=== PATIENT | female | born 1975 | race Caucasian/White ===

== ENCOUNTER 2018-10-05 10:20 | Observation (INO) | payer MEDICAID, OTHER ==
[~2018-10-05 10:20] MED LIST: BUPIV. HCL 0.25% (2.5MG/ML)/EPI. (1:200,000) PF 30 ML VIAL IJ ONE; CLINDAMYCIN PHOSPHATE 900 MG/6 ML VIAL ONE; DEXAMETHASONE SODIUM PHOSPHATE 10 MG/ML VIAL ONE; ENOXAPARIN SODIUM 40 MG/0.4 ML DISP.SYRIN SQ ONE; FAMOTIDINE 20 MG/2 ML VIAL ONE; KETOROLAC TROMETHAMINE 30 MG/1ML VIAL ONE; LACTATED RINGERS 1,000 ML IV.SOLN IV ONE; LEVALBUTEROL NEB 1.25 MG/3 ML VIAL.NEB IH ONE; LIDOCAINE HCL 1% PF 300MG/30ML VIAL ONE; LIDOCAINE HCL 2% PF 100MG/5ML VIAL IJ ONE; MIDAZOLAM HCL 2 MG/2 ML VIAL ONE; NORMAL SALINE 1,000 ML IV.SOLN IV ONE; ONDANSETRON HCL/PF 4 MG/ 2ML VIAL ONE; PROPOFOL 200 MG/20 ML VIAL IV ONE; ROCURONIUM BROMIDE 10 MG/ML 5ML VIAL ONE; SEVOFLURANE 250 ML LIQUID IH ONE; SUGAMMADEX SODIUM 200 MG/2 ML VIAL IV ONE; fentaNYL CITRATE/PF 100 MCG/2 ML INJ. ONE
[2018-10-05] MEDS ORDERED: ACETAMINOPHEN 1,000 MG/100 ML INJ IV PRN (10:27)
[2018-10-05] MEDS ORDERED: ONDANSETRON HCL/PF 4 MG/ 2ML VIAL IVP PRN (10:27)
[2018-10-05] MEDS ORDERED: ACETAMINOPHEN 500 MG TABLET PO PRN (10:27)
[2018-10-05] MEDS ORDERED: 0.9 % SODIUM CHLORIDE 1,000 ML IV SCH (10:30)
[2018-10-05] MEDS ORDERED: ALBUTEROL 90MCG/PUFF INHALER IH PRN (10:43)
--- NOTE | 2018-10-05 11:03 | History and Physical Report ---
History of Present Illnes - History of Present Illness Reason for Visit: Gastric Band Removal History of Present Illness: Patient is a 43-year-old female who presents to the hospital today to have Gastric Band removed. Patient initially had the Gastric Band placed in 2013. She has a history of dealing with obesity especially after 1st . She has tried multiple diet programs, diets, medications, and exercise with little benefit. Patient and PCP believed her co-morbidities were associated with her weight and she underwent the gastric band in 2013. She states that she had lost some weight but has gained it back. Patient will be staying observation due to miscommunication and not having a guard driver. Patient drove herself. Upon arrival to room she was tearful because she would not be able to receive narcotic pain meds since she was driving herself. She is not uncomfortable at this time but she is concerned about not being able to receive "narcotic" pain medication. Education was provided to patient that we would provide appropriate pain treatment including; ambulation, incentive spirometry, anxiety medications (home med), and non-narcotic pain medication. She is on her phone vigorously trying to find someone to get her so she can take her "future scheduled narcotic pain meds". I explained that we would do our best to keep her comfortable and treat her appropriately- I explained that she does not need to panic and staying here will be ok. She is slowly starting to calm down. I will continue with her antidepressant and anxiety medications. After exam- patient was up walking in the brown with physical therapy- she was doing very well- she was socializing with PT and staff and appears to be feeling emotionally better. She is smiling, no apparent distress with ambulation. Will continue to monitor and speak with patient to calm her concerns. 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) Drugs: None Lives: With Family Domestic Violence: Negative - Health Maintenance Health Maintenance: Cholesterol, Influenza Vaccine Influenza Vaccine: Current for this Influenza Season Pneumonia Vaccine: No Resuscitation Status: Resusciation Status Resuscitation Status Full Code - Unable to Obtain History Unable to Obtain: No Review of Systems - Review of Systems Constitutional: negative: Fever, Chills, Weakness Eyes: negative: pain ENT: negative: Ear Pain, Nose Pain, Throat Pain Respiratory: negative: Cough, Shortness of Breath, SOB with Excertion, Wheezing Cardiovascular: negative: Chest Pain, Palpitations, Light Headedness Gastrointestinal: negative: Nausea, Vomiting, Abdominal Pain Genitourinary: negative: Dysuria Musculoskeletal: negative: Back Pain Skin: negative: Rash Neurological: negative: Weakness - Medications/Allergies Allergies/Adverse Reactions: Allergies Allergy/AdvReac Type Severity Reaction Status Date / Time Penicillins Allergy Verified 10/05/18 10:26 Home Medications: Home Medications Albuterol Sulfate [Proair HFA] 2 inh IH Q4-6 PRN 10/05/18 Alprazolam [Xanax] 0.5 mg PO TID 10/05/18 Gabapentin 300 mg PO BID 10/05/18 Hydrochlorothiazide 12.5 mg PO DAILY 10/05/18 Hydrocodone/Acetaminophen [Hydrocodone-Acetamin 5-325 mg] 1 each PO Q6 PRN 10/05/18 Losartan Potassium [Cozaar] 50 mg PO DAILY 10/05/18 Mometasone/Formoterol [Dulera 100 Mcg/5 Mcg Inhaler] 2 inh INH BID 10/05/18 Pantoprazole Sodium 40 mg PO DAILY 10/05/18 Ropinirole HCl 5 mg PO HS 10/05/18 Sertraline HCl [Zoloft] 150 mg PO DAILY 10/05/18 Verapamil HCl 80 mg PO TID 10/05/18 Current Inpatient Medications: Current Inpatient Medications Acetaminophen (Ofirmev) 1,000 mg IV Q6H PRN PRN Reason: For Mild Breakthrough Pain Stop: 10/09/18 10:26 Acetaminophen (Tylenol Extra Strength) 1,000 mg PO Q6H PRN PRN Reason: pain Albuterol Sulfate (Ventolin Hfa) puff IH Q4-6 PRN PRN Reason: PAIN Alprazolam (Xanax) 0.5 mg PO TID [facility] Enoxaparin Sodium (Lovenox) 40 mg SQ DAILY [facility] Stop: 10/20/18 08:59 Gabapentin (Neurontin) 300 mg PO BID [facility] Clindamycin Phosphate 600 mg/ (PREMIX BAG) 50 mls @ 50 mls/hr IV Q8H [facility] Stop: 10/05/18 22:59 Sodium Chloride (Normal Saline) 1,000 mls @ 150 mls/hr IV Q8H [facility] Ketorolac Tromethamine (Toradol) 30 mg IVP Q6 PRN PRN Reason: For Mild Pain Stop: 10/09/18 10:26 Losartan Potassium (Cozaar) 50 mg PO DAILY [facility] Miscellaneous (Hydrochlorothiazide [Hydrochlorothiazide]) 12.5 mg PO DAILY [facility] Miscellaneous (Mometasone/Formoterol [Dulera 100 Mcg/5 Mcg Inhaler]) 2 inh INH BID [facility] Miscellaneous (Ropinirole Hcl [Ropinirole Hcl]) 5 mg PO HS [facility] Miscellaneous (Verapamil Hcl [Verapamil Hcl]) 80 mg PO TID [facility] Ondansetron HCl (Zofran) 4 mg IVP Q6H PRN PRN Reason: Nausea / Vomiting Stop: 10/09/18 10:26 Pantoprazole Sodium (Protonix) 40 mg PO DAILY [facility] Sertraline HCl (Zoloft) 150 mg PO DAILY [facility] Exam - Exam General: Alert, Oriented to Person, Oriented to Place, Oriented to Time, Cooperative, Mild distress ("anxiety" due to future medication intake "narcotic"), Obese HEENT: PERRLA, Mouth Mucous membr. moist/[place], Nose Mucous membr. moist/[place] Neck: Normal Range of Motion Lungs: Clear to auscultation, Normal air movement, Speaks full Sentences. No: Wheezes Cardiovascular: Regular rate, Normal S1, Normal S2 Peripheral Edema: none Peripheral Pulses: 2+ Abdomen: Soft, Decreased Bowel Sounds Integumentary: Normal, [place], Warm, Dry Extremities: No edema, Normal pulses, No tenderness/swelling, Other (pt is up ambulating with PT- doing GREAT at 11:06) Neurological: Normal gait (pt walking in the hallway with PT- doing very well), Normal speech, Strength Equal Bilat, Normal tone, Sensation intact, Cranial nerves 3-12 NL Psych/Mental Status: Mood NL (tearful- improved after talking with pt) Assessment/Plan - Assessment/Plan (1) History of removal of laparoscopic gastric banding device Status: Acute Current Visit: Yes Assessment: LCTA, decreased bowel sounds but present, no pain/tenderness to legs, dressing intact, skin is P/W/D, HRRR Plan: Will monitor I/O, will give IVF since she was NPO prior to surgery, will start patient on clear liquids and advance diet as tolerated. Will give appropriate pain relief, will ambulate with patient in the brown frequently, will monitor telemetry, will use incentive spirometer frequently due to COPD with Asthma, SCDs while in bed to prevent DVTs. (2) Obesity (BMI 30.0-34.9) Status: Acute Current Visit: Yes Assessment: Patient had gastric band removed today- will advance diet as tolerated with NCS/MAGO Plan: Will advance diet as tolerated- MAGO/NCS (3) Anxiety and depression Status: Acute Current Visit: Yes Assessment: Patient is anxious and tearful about pain care plan Plan: Educated pt on plan for pain relief and anxiety- will continue to treat pain appropriately, will continue anxiety and depression medication (4) Osteoarthritis Status: Acute Current Visit: Yes Qualifiers: Osteoarthritis location: multiple joints Osteoarthritis type: other secondary Qualified Code(s): 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 We will have her walk frequently (explained that laying in bed for long periods will actually increase pain)- will wear SCDs while in bed. Will have patient sit in chair for meals (5) COPD with asthma Status: Acute Current Visit: Yes Assessment: No resp. issues on assessment- will use incentive spirometry frequently, will continue home inhaler, will order HFNs if needed Plan: will use incentive spirometry frequently, will continue home inhaler, will order HFNs if needed (6) Hypertension Status: Acute Current Visit: Yes Qualifiers: Hypertension type: essential hypertension Qualified Code(s): I10 - Essential (primary) hypertension Plan: Will continue home blood pressure plan with same medications VTE Assessment - RISK FACTOR SCORE VTE RISK FACTOR SCORES: AGE 40-60 YEARS, OBESITY, SMOKER, MINOR SURGERY/ ANESTHESIA TIME < 1 HOUR - RISK VTE HIGH RISK: SCORE OF 3-4 (RISK PROXIMAL DVT 4-8%) PROPHYLAXIS NEEDED (Will give lovenox daily, ambulate frequently, SCDs while in bed)
[2018-10-05] MEDS: KETOROLAC TROMETHAMINE 30 MG/1ML VIAL IVP PRN ×2 (12:56→21:10)
[2018-10-05] MEDS ORDERED: NICOTINE 14mg PATCH.TD24 TD SCH (13:00)
[2018-10-05] MEDS ORDERED: CLINDAMYCIN PHOSPHATE/D5W 50 ML IV ONE (13:02)
[2018-10-05] MEDS: ALPRAZOLAM 0.5 MG TABLET PO SCH ×2 (13:07→17:40)
[2018-10-05] MEDS: VERAPAMIL HCL 80 MG PO SCH ×2 (13:50→17:40)
[2018-10-05] MEDS ORDERED: CLINDAMYCIN PHOSPHATE/D5W 600 MG in PREMIX BAG 1 BAG IV SCH (14:00)
[2018-10-05 16:31] VITALS: BMI 73.5
--- NOTE | 2018-10-05 20:24 | Discharge Summary ---
Discharge Summary - Discharge Sumary History of Present Illness: Patient is a 43-year-old female who presents to the hospital today to have Gastric Band removed. Patient initially had the Gastric Band placed in 2013. She has a history of dealing with obesity especially after 1st . She has tried multiple diet programs, diets, medications, and exercise with little benefit. Patient and PCP believed her co-morbidities were associated with her weight and she underwent the gastric band in 2013. She states that she had lost some weight but has gained it back. 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 Patient drove herself. Upon arrival to room she was tearful because she would not be able to receive narcotic pain meds since she was driving herself. She is not uncomfortable at this time but she is concerned about not being able to receive "narcotic" pain medication. Education was provided to patient that we would provide appropriate pain treatment including; ambulation, incentive spirometry, anxiety medications (home med), and non-narcotic pain medication. She is on her phone vigorously trying to find someone to get her so she can take her "future scheduled narcotic pain meds". I explained that we would do our best to keep her comfortable and treat her appropriately- I explained that she does not need to panic and staying here will be ok. She is slowly starting to calm down. I will continue with her antidepressant and anxiety medications. After exam- patient was up walking in the brown with physical therapy- she was doing very well- she was socializing with PT and staff and appears to be feeling emotionally better. She is smiling, no apparent distress with ambulation. Will continue to monitor and speak with patient to calm her concerns. Condition at Discharge: Stable Home Medications: Ambulatory Orders Medication Instructions Recorded Albuterol Sulfate [Proair HFA] 2 inh IH Q4-6 PRN 10/05/18 Alprazolam [Xanax] 0.5 mg PO TID 10/05/18 Gabapentin 300 mg PO BID 10/05/18 Hydrochlorothiazide 12.5 mg PO DAILY 10/05/18 Hydrocodone/Acetaminophen 1 each PO Q6 PRN 10/05/18 [Hydrocodone-Acetamin 5-325 mg] Losartan Potassium [Cozaar] 50 mg PO DAILY 10/05/18 Mometasone/Formoterol [Dulera 100 2 inh INH BID 10/05/18 Mcg/5 Mcg Inhaler] Pantoprazole Sodium 40 mg PO DAILY 10/05/18 Ropinirole HCl 5 mg PO HS 10/05/18 Sertraline HCl [Zoloft] 150 mg PO DAILY 10/05/18 Verapamil HCl 80 mg PO TID 10/05/18 Consultations this Visit: None Procedures this Visit: Other (Status Post Gastric Band Removal) Allergies/Adverse Reactions: Allergies Allergy/AdvReac Type Severity Reaction Status Date / Time Penicillins Allergy Verified 10/05/18 10:26 Discharge Summary: Patient is a 43-year-old female that did well after gastric band removal- however, she was very upset that she was not able to go out and smoke but Nicotine patch was ordered and applied. She was finally able to find a ride and was ready to discharge. Hospital Course: IV fluids, frequent ambulation, incentive spirometry, and advancing of diet as tolerated. - Final Diagnosis (1) History of removal of laparoscopic gastric banding device Problems: Monitor incision sites for signs of infection, frequent ambulation, use incentive spirometer Right or Left: Right (2) Obesity (BMI 30.0-34.9) Problems: Patient will be back in a few weeks for gastric sleeve procedure Right or Left: Right (3) Anxiety and depression Problems: stable on home meds Right or Left: Right (4) Osteoarthritis Problems: stable on home meds Right or Left: Right (5) COPD with asthma Problems: stable on home meds Right or Left: Right (6) Hypertension Problems: stable on home meds Right or Left: Right
[2018-10-05] MEDS ORDERED: MOMETASONE INH SCH (21:00)
[2018-10-05] MEDS ORDERED: ROPINIROLE HCL 5 MG PO SCH (21:00)
[2018-10-05] MEDS ORDERED: FORMOTEROL INH SCH (21:00)
[2018-10-05] MEDS ORDERED: GABAPENTIN 300 MG CAPSULE PO SCH (21:00)
[2018-10-05] MEDS ORDERED: ONDANSETRON HCL/PF 4 MG/ 2ML VIAL IVP ONE (21:00)
[2018-10-06 00:26] VITALS: BP 131/78
[2018-10-06] MEDS ORDERED: PANTOPRAZOLE SODIUM 40 MG TABLET.DR PO SCH (07:00)
[2018-10-06] MEDS ORDERED: LOSARTAN POTASSIUM 50 MG TABLET PO SCH (09:00)
[2018-10-06] MEDS ORDERED: HYDROCHLOROTHIAZIDE 25 MG TABLET PO SCH (09:00)
[2018-10-06] MEDS ORDERED: ENOXAPARIN SODIUM 40 MG/0.4 ML DISP.SYRIN SQ SCH (09:00)
[2018-10-06] MEDS ORDERED: SERTRALINE HCL 50 MG TABLET PO SCH (09:00)
== END 2018-10-05 21:40 | disposition home or self-care (01) ==
LOC: SOUTH 10:20 → UNDOADMOB 10:20 → UNDODISOB 21:40
PROVIDERS: ADMIT Nurse Practitioner Family; ATTEND Nurse Practitioner Family
DX: K95.09 Other complications of gastric band procedure (principal); F41.9 Anxiety disorder, unspecified; F32.9 Major depressive disorder, single episode, unspecified; J44.9 Chronic obstructive pulmonary disease, unspecified; I10 Essential (primary) hypertension; Z68.34 Body mass index [BMI] 34.0-34.9, adult
CPT/HCPCS: 43774; 97116; 97161; G0378; G0379; J1650; J1885; J2001; J2250; J2405; J2704; J3010; J7030; J7120; J7614; 99234

== ENCOUNTER 2018-12-28 07:47 | Day surgery (SDC) | payer MEDICAID, OTHER ==
[2018-10-06 00:26] VITALS: BP 131/78
[2018-12-28] MEDS ORDERED: HYDROmorphone HCL/PF 1 MG/ML VIAL ONE (11:19)
[2018-12-28] MEDS ORDERED: ONDANSETRON HCL/PF 4 MG/ 2ML VIAL ONE (11:39)
== END 2018-12-28 12:24 | disposition other institution (70) ==
LOC: OPSURG 07:47
PROVIDERS: ATTEND Surgery
DX: K95.09 Other complications of gastric band procedure (principal); K21.9 Gastro-esophageal reflux disease without esophagitis; R11.2 Nausea with vomiting, unspecified
CPT/HCPCS: J1170; J2405